=== PATIENT | male | born 1970 | race African-American/Black ===

== ENCOUNTER 2018-01-19 16:34 | Emergency (ER) | payer BC, OTHER ==
[2018-01-19] MEDS ORDERED: POLYETHYLENE GLYCOL 3350 POWDER 17 GM/1 PACKET PO ONE (17:32)
[2018-01-19] MEDS ORDERED: FAMOTIDINE 20 MG TABLET PO ONE (17:32)
--- NOTE | 2018-01-19 17:33 | ER Document Report ---
ED Medical Screen (RME) - General Chief Complaint: Abdominal Pain Stated Complaint: ABDOMINAL PAIN Time Seen by Provider: 01/19/18 17:22 Notes: RAPID MEDICAL EVALUATION DISCLOSURE I have seen this patient as part of a Rapid Medical Evaluation and, if applicable, placed any initially appropriate orders. The patient will be seen and fully evaluated, including a full history and physical exam, by a provider ( in Main ED or Fast Track) when a room becomes available. 47-year-old male here with complaints of epigastric abdominal pain ongoing for the past few days. He has noticed the pain worsened after he drank Sprite earlier today. He has had some nausea but no vomiting or diarrhea. He has been constipated lately and last bowel movement was 3 days ago. He does not currently have any abdominal pain. EXAM No abdominal TTP TRAVEL OUTSIDE OF THE [place] IN LAST 30 DAYS: No - Related Data Allergies/Adverse Reactions: No Known Allergies Allergy (Unverified 09/11/14 01:57) Past Medical History - Past Medical History Cardiac Medical History: Reports: Hx Hypertension Physical Exam - Vital signs Vitals: Temp Pulse Resp BP Pulse Ox 98.6 F 71 18 191/102 H 99 01/19/18 17:10 01/19/18 17:10 01/19/18 17:10 01/19/18 17:10 01/19/18 17:10 Course - Vital Signs Vital signs: Temp Pulse Resp BP Pulse Ox 98.6 F 71 18 191/102 H 99 01/19/18 17:10 01/19/18 17:10 01/19/18 17:10 01/19/18 17:10 01/19/18 17:10
[2018-01-19 18:07] LABS: ABSOLUTE BASOPHILS # (AUTO) 0.1 10^3/uL (0.0-0.2); ABSOLUTE EOSINOPHILS # (AUTO) 0.1 10^3/uL (0.0-0.6); ABSOLUTE LYMPHOCYTES (AUTO) 2.5 10^3/uL (0.5-4.7); ABSOLUTE MONOCYTES (AUTO) 0.7 10^3/uL (0.1-1.4); ABSOLUTE NEUT (AUTO) 5.3 10^3/uL (1.7-8.2); BASOPHILS % (AUTO) 0.7 % (0-2); EOSINOPHILS % (AUTO) 0.7 % (0-6); HEMATOCRIT 48.5 % (37.9-51.0); HEMOGLOBIN 16.3 g/dL (13.5-17.0); LYMPHOCYTES % (AUTO) 29.2 % (13-45); MEAN CORPUSCULAR HEMOGLOBIN 29.4 pg (27.0-33.4); MEAN CORPUSCULAR HGB CONC 33.7 g/dL (32.0-36.0); MEAN CORPUSCULAR VOLUME 87 fl (80-97); MONOCYTES % (AUTO) 8.4 % (3-13); PLATELET COUNT 215 10^3/uL (150-450); RED BLOOD COUNT 5.55 10^6/uL (4.35-5.55); RED CELL DISTRIBUTION WIDTH 14.8 % (11.5-14.0); TOTAL CELLS COUNTED % (AUTO) 100 %; WHITE BLOOD COUNT 8.7 10^3/uL (4.0-10.5)
[2018-01-19 18:21] LABS: ALANINE AMINOTRANSFERASE 45 U/L (21-72); ALBUMIN 4.8 g/dL (3.5-5.0); ALKALINE PHOSPHATASE 78 U/L (38-126); ANION GAP 15 (5-19); ASPARTATE AMINO TRANSFERASE 25 U/L (17-59); BILIRUBIN,DIRECT 0.3 mg/dL (0.0-0.4); BILIRUBIN,TOTAL 0.5 mg/dL (0.2-1.3); BLOOD UREA NITROGEN 12 mg/dL (7-20); CALCIUM 10.2 mg/dL (8.4-10.2); CARBON DIOXIDE 30 mmol/L (22-30); CHLORIDE 101 mmol/L (98-107); GLUCOSE 120 mg/dL (75-110); LIPASE 411.2 U/L (23-300); POTASSIUM 4.1 mmol/L (3.6-5.0); SODIUM 145.6 mmol/L (137-145); TOTAL PROTEIN 8.2 g/dL (6.3-8.2)
--- NOTE | 2018-01-19 18:41 | RADIOLOGY REPORT (SQ) ---
EXAM DESCRIPTION: ACUTE ABDOMEN SERIES COMPLETED DATE/TIME: 01/19/2018 6:09 pm REASON FOR STUDY: epig pain; eval stool burden COMPARISON: None. NUMBER OF VIEWS: 4 images total TECHNIQUE: Frontal chest, supine abdomen and upright/decubitus abdomen radiographic images acquired. LIMITATIONS: None. FINDINGS: CHEST: Lungs clear of infiltrates. FREE AIR: None. No abnormal gas collections. BOWEL GAS PATTERN: Nonobstructive bowel pattern. Small to moderate fecal material. No free air. CALCIFICATIONS: No suspicious calcifications the upper abdomen. Several nonspecific pelvic calcifica tions are noted. HARDWARE: None in the abdomen. SOFT TISSUES: No gross mass or suggestion of organomegaly. BONES: No acute fracture. No worrisome bone lesions. OTHER: No other significant finding. IMPRESSION: Nonobstructive bowel pattern. Small to moderate amount of fecal material. TECHNICAL DOCUMENTATION: JOB ID: [id number] [employer]- All Rights Reserved Reading location - IP/workstation name: [email or web address]
--- NOTE | 2018-01-19 20:52 | ER Document Report ---
ED General - General Chief Complaint: Abdominal Pain Stated Complaint: ABDOMINAL PAIN Time Seen by Provider: 01/19/18 17:22 Notes: 47-year-old male here with complaints of epigastric abdominal pain ongoing for the past few days. He has noticed the pain worsened after he drank Sprite earlier today. He has had some nausea but no vomiting or diarrhea. He has been constipated lately and last bowel movement was 3 days ago. He does not currently have any abdominal pain. TRAVEL OUTSIDE OF THE [place] IN LAST 30 DAYS: No - Related Data Allergies/Adverse Reactions: No Known Allergies Allergy (Unverified 09/11/14 01:57) Past Medical History - Social History Smoking Status: Current Some Day Smoker Chew tobacco use (# tins/day): No Frequency of alcohol use: Rare Drug Abuse: Marijuana Family History: None Patient has suicidal ideation: No Patient has homicidal ideation: No - Past Medical History Cardiac Medical History: Reports: Hx Hypercholesterolemia, Hx Hypertension Renal/ Medical History: Denies: Hx Peritoneal Dialysis Past Surgical History: Reports: Hx Tonsillectomy Review of Systems - Review of Systems Notes: See history of present illness for pertinent positive review of systems; otherwise all review of systems have been reviewed and are negative Physical Exam - Vital signs Vitals: Temp Pulse Resp BP Pulse Ox 98.6 F 71 18 191/102 H 99 01/19/18 17:10 01/19/18 17:10 01/19/18 17:10 01/19/18 17:10 01/19/18 17:10 - Notes Notes: PHYSICAL EXAMINATION: GENERAL: Well-appearing and in no acute distress. HEAD: Atraumatic, normocephalic. EYES: Pupils equal round and reactive to light, extraocular movements intact, sclera anicteric, conjunctiva are normal. ENT: nares patent, oropharynx clear without exudates. Moist mucous membranes. NECK: Normal range of motion, supple without lymphadenopathy LUNGS: CTAB and equal. No wheezes rales or rhonchi. HEART: Regular rate and rhythm without murmurs ABDOMEN: Soft, no tenderness. No facial grimacing/wincing upon palpation. No guarding, no rebound. EXTREMITIES: Normal range of motion, no pitting edema. No cyanosis. NEUROLOGICAL: Cranial nerves grossly intact. Normal sensory/motor exams. PSYCH: Normal mood, normal affect. SKIN: Warm, Dry, normal turgor, no rashes or lesions noted Course - Re-evaluation Re-evalutation: 01/19/18 20:46 MEDICAL DECISION MAKING: Concern for pancreatitis versus gastritis versus constipation Results reviewed there is no leukocytosis hemoglobin is normal electrolytes show minimal hypernatremia Lipase is minimally elevated in the 400s Patient is still pain-free and I have offered IV fluids however he declines He would like to go home instead with prescriptions Blood pressure is elevated however PCP just added a second BP medication today which he has started already He does not have headache lightheadedness chest pain shortness of breath or any other symptoms currently Therefore I have no concern at this time for hypertensive crisis in this patient Instructed follow-up PCP next day or few Discussed with him bland diet and staying hydrated Patient understands and agrees to the plan of care - Vital Signs Vital signs: Temp Pulse Resp BP Pulse Ox 98.6 F 71 18 191/102 H 99 01/19/18 17:10 01/19/18 17:10 01/19/18 17:15 01/19/18 17:10 01/19/18 17:10 - Laboratory Result Diagrams: 01/19/18 17:49 01/19/18 17:49 Laboratory results interpreted by me: 01/19/18 01/19/18 17:49 17:49 RDW 14.8 H Sodium 145.6 H Glucose 120 H Lipase 411.2 H Discharge - Discharge Clinical Impression: Pancreatitis Qualifiers: Chronicity: acute Pancreatitis type: unspecified pancreatitis type Acute pancreatitis complication: unspecified Qualified Code(s): K85.90 - Acute pancreatitis without necrosis or infection, unspecified Condition: Good Disposition: HOME, SELF-CARE Additional Instructions: You were seen in the emergency department at [facility]. You declined IV fluids and to wait for a room to see the main provider/doctor. If you were given any sedating medications (Percocet), be sure not to operate heavy machinery (example - driving) and be sure you are not too sedated to walk appropriately. Please ensure that you stick with the bland diet that we discussed so the pancreatitis does not worsen. Please stay hydrated with plenty of water. Please followup with your primary physician in the next few days for further management/evaluation. Please return to the emergency department for worsening of symptoms or any symptom that you deem to be concerning or life-threatening. Thank you for allowing us to be part of your care. Prescriptions: Ondansetron [Zofran Odt 4 mg Tablet] 1 tab PO Q4H PRN #15 tab.rapdis PRN Reason: For Nausea/Vomiting Oxycodone HCl/Acetaminophen [Percocet 5-325 mg Tablet] 1 - 2 tab PO Q4H PRN #25 tablet PRN Reason:
[2018-01-19 20:55] VITALS: BP 195/100
== END 2018-01-19 21:01 | disposition home or self-care (01) ==
LOC: ER 16:34
DX: K85.90 Acute pancreatitis without necrosis or infection, unspecified (principal); K59.00 Constipation, unspecified; R11.0 Nausea; F17.200 Nicotine dependence, unspecified, uncomplicated; I10 Essential (primary) hypertension
CPT/HCPCS: 99284; 36415; 83690; 85025; 80053; 74022; J3490

== ENCOUNTER 2018-05-22 14:58 | Emergency (ER) | payer BC ==
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
[2018-05-22 15:58] LABS: ABSOLUTE BASOPHILS # (AUTO) 0.1 10^3/uL (0.0-0.2); ABSOLUTE EOSINOPHILS # (AUTO) 0.1 10^3/uL (0.0-0.6); ABSOLUTE LYMPHOCYTES (AUTO) 2.8 10^3/uL (0.5-4.7); ABSOLUTE MONOCYTES (AUTO) 0.6 10^3/uL (0.1-1.4); ABSOLUTE NEUT (AUTO) 3.3 10^3/uL (1.7-8.2); BASOPHILS % (AUTO) 1.1 % (0-2); EOSINOPHILS % (AUTO) 1.7 % (0-6); HEMATOCRIT 41.7 % (37.9-51.0); HEMOGLOBIN 14.3 g/dL (13.5-17.0); LYMPHOCYTES % (AUTO) 40.9 % (13-45); MEAN CORPUSCULAR HEMOGLOBIN 29.5 pg (27.0-33.4); MEAN CORPUSCULAR HGB CONC 34.2 g/dL (32.0-36.0); MEAN CORPUSCULAR VOLUME 86 fl (80-97); MONOCYTES % (AUTO) 8.5 % (3-13); PLATELET COUNT 230 10^3/uL (150-450); RED BLOOD COUNT 4.83 10^6/uL (4.35-5.55); SEGMENTED NEUTROPHILS % (AUTO) 47.8 % (42-78); TOTAL CELLS COUNTED % (AUTO) 100 %; WHITE BLOOD COUNT 6.9 10^3/uL (4.0-10.5)
[2018-05-22 15:59] LABS: ARTERIAL BLOOD H2CO3 1.45 mmol/L (1.05-1.35); ARTERIAL BLOOD HCO3 29.7 mmol/L (20-24); ARTERIAL BLOOD O2 SATURATION 95.1 % (94-98); ARTERIAL BLOOD PCO2 48.2 mmHg (35-45); ARTERIAL BLOOD PH 7.41 (7.35-7.45); ARTERIAL BLOOD PO2 75.3 mmHg (80-100); ARTERIAL BLOOD TOTAL CO2 31.2 mmol/L (23-27)
[2018-05-22 16:02] LABS: INTERNATIONAL RATION (INR) 0.88; PARTIAL THROMBOPLASTIN TIME 28.6 SEC (23.5-35.8); PROTHROMBIN TIME 12.4 SEC (11.4-15.4)
[2018-05-22 16:03] LABS: ARTERIAL BLOOD FIO2 15L
[2018-05-22 16:09] LABS: ALANINE AMINOTRANSFERASE 43 U/L (21-72); ALBUMIN 4.3 g/dL (3.5-5.0); ALKALINE PHOSPHATASE 67 U/L (38-126); ANION GAP 8 (5-19); ASPARTATE AMINO TRANSFERASE 26 U/L (17-59); BILIRUBIN,DIRECT 0.3 mg/dL (0.0-0.4); BILIRUBIN,TOTAL 0.4 mg/dL (0.2-1.3); BLOOD UREA NITROGEN 12 mg/dL (7-20); CALCIUM 9.6 mg/dL (8.4-10.2); CARBON DIOXIDE 30 mmol/L (22-30); CHLORIDE 103 mmol/L (98-107); GLUCOSE 123 mg/dL (75-110); SODIUM 140.9 mmol/L (137-145); TOTAL PROTEIN 7.3 g/dL (6.3-8.2)
[2018-05-22] MEDS ORDERED: CLONIDINE HCL 0.2 MG TABLET PO ONE (20:12)
[2018-05-22 20:29] VITALS: BP 166/102
== END 2018-05-22 20:45 | disposition left against medical advice (07) ==
LOC: ER 14:58
DX: T59.7X1A Toxic effect of carbon dioxide, accidental (unintentional), initial encounter (principal); R42 Dizziness and giddiness; I10 Essential (primary) hypertension; R51 Headache; Z53.20 Procedure and treatment not carried out because of patient's decision for unspecified reasons; Z65.5 Exposure to disaster, war and other hostilities
CPT/HCPCS: 36415; 80053; 82375; 82803; 85025; 85610; 85730; 99284

== ENCOUNTER 2018-05-23 10:02 | Inpatient (IN) | payer BC ==
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
--- NOTE | 2018-05-23 10:39 | RADIOLOGY REPORT (SQ) ---
EXAM DESCRIPTION: CT HEAD WITHOUT COMPLETED DATE/TIME: 05/23/2018 10:29 am REASON FOR STUDY: STROKE SYMPTOMS COMPARISON: 2006 TECHNIQUE: Axial images acquired through the brain without intravenous contrast. Images reviewed wi th bone, brain and subdural windows. Additional sagittal and coronal reconstructions were generated. Images stored on PACS. All CT scanners at this facility use dose modulation, iterative reconstruction, and/or weight based d osing when appropriate to reduce radiation dose to as low as reasonably achievable (ALARA). [facility]: Dose Right [facility]: CareDose [facility]: Dose Right [facility]: Teradose 4D [facility]: Dtime RADIATION DOSE: CT Rad equipment meets quality standard of care and radiation dose reduction techniq ues were employed. CTDIvol: 53.2 mGy. DLP: 991 mGy-cm. mGy. LIMITATIONS: None. FINDINGS: VENTRICLES: Normal size and contour. CEREBRUM: No masses. No hemorrhage. No midline shift. No evidence for acute infarction. Normal gra y/white matter differentiation. No areas of low density in the white matter. CEREBELLUM: No masses. No hemorrhage. No alteration of density. No evidence for acute infarction. EXTRAAXIAL SPACES: No fluid collections. No masses. ORBITS AND GLOBE: No intra- or extraconal masses. Normal contour of globe without masses. CALVARIUM: No fracture. PARANASAL SINUSES: No fluid or mucosal thickening. SOFT TISSUES: No mass or hematoma. OTHER: No other significant finding. IMPRESSION: NORMAL BRAIN CT WITHOUT CONTRAST. EVIDENCE OF ACUTE STROKE: NO. COMMENT: Quality ID # [id number]: Final reports with documentation of one or more dose reduction techniques (e.g., Automated exposure control, adjustment of the mA and/or kV according to patient size, use of iterative reconstruction technique) TECHNICAL DOCUMENTATION: JOB ID: [id number] [employer]- All Rights Reserved Reading location - IP/workstation name: [email or web address]
--- NOTE | 2018-05-23 10:41 | RADIOLOGY REPORT (SQ) ---
EXAM DESCRIPTION: CHEST SINGLE VIEW COMPLETED DATE/TIME: 05/23/2018 10:31 am REASON FOR STUDY: POSSIBLE STROKE COMPARISON: None. EXAM PARAMETERS: NUMBER OF VIEWS: One view. TECHNIQUE: Single frontal radiographic view of the chest acquired. RADIATION DOSE: NA LIMITATIONS: None. FINDINGS: LUNGS AND PLEURA: No opacities, masses or pneumothorax. No pleural effusion. MEDIASTINUM AND HILAR STRUCTURES: No masses. Contour normal. HEART AND VASCULAR STRUCTURES: Heart normal in size. Normal vasculature. BONES: No acute findings. HARDWARE: None in the chest. OTHER: No other significant finding. IMPRESSION: NO ACUTE RADIOGRAPHIC FINDING IN THE CHEST. TECHNICAL DOCUMENTATION: JOB ID: [id number] 2010 [employer]- All Rights Reserved Reading location - IP/workstation name: [email or web address]
[2018-05-23 11:14] LABS: ABSOLUTE BASOPHILS # (AUTO) 0.1 10^3/uL (0.0-0.2); ABSOLUTE EOSINOPHILS # (AUTO) 0.1 10^3/uL (0.0-0.6); ABSOLUTE LYMPHOCYTES (AUTO) 2.9 10^3/uL (0.5-4.7); ABSOLUTE MONOCYTES (AUTO) 0.7 10^3/uL (0.1-1.4); ABSOLUTE NEUT (AUTO) 4.8 10^3/uL (1.7-8.2); HEMATOCRIT 45.8 % (37.9-51.0); HEMOGLOBIN 15.8 g/dL (13.5-17.0); LYMPHOCYTES % (AUTO) 33.9 % (13-45); MEAN CORPUSCULAR HEMOGLOBIN 29.7 pg (27.0-33.4); MEAN CORPUSCULAR HGB CONC 34.6 g/dL (32.0-36.0); MEAN CORPUSCULAR VOLUME 86 fl (80-97); MONOCYTES % (AUTO) 7.9 % (3-13); PLATELET COUNT 250 10^3/uL (150-450); RED BLOOD COUNT 5.33 10^6/uL (4.35-5.55); RED CELL DISTRIBUTION WIDTH 14.5 % (11.5-14.0); SEGMENTED NEUTROPHILS % (AUTO) 56.2 % (42-78); TOTAL CELLS COUNTED % (AUTO) 100 %; WHITE BLOOD COUNT 8.5 10^3/uL (4.0-10.5)
[2018-05-23] MEDS ORDERED: ASPIRIN 81 MG TABLET, CHEWABLE PO ONE (11:24)
[2018-05-23 11:25] LABS: ALANINE AMINOTRANSFERASE 37 U/L (21-72); ALBUMIN 4.5 g/dL (3.5-5.0); ALKALINE PHOSPHATASE 76 U/L (38-126); ANION GAP 5 (5-19); ASPARTATE AMINO TRANSFERASE 32 U/L (17-59); BILIRUBIN,DIRECT 0.6 mg/dL (0.0-0.4); BILIRUBIN,TOTAL 0.8 mg/dL (0.2-1.3); BLOOD UREA NITROGEN 12 mg/dL (7-20); CALCIUM 9.9 mg/dL (8.4-10.2); CARBON DIOXIDE 29 mmol/L (22-30); CHLORIDE 106 mmol/L (98-107); CREATINE KINASE 184 U/L (55-170); GLUCOSE 132 mg/dL (75-110); POTASSIUM 4.1 mmol/L (3.6-5.0); SODIUM 140.4 mmol/L (137-145); TOTAL PROTEIN 8.3 g/dL (6.3-8.2)
[2018-05-23 11:36] LABS: CREATINE KINASE MB 0.68 ng/mL (<4.55)
[2018-05-23 11:37] LABS: TROPONIN I < 0.012 ng/mL
[2018-05-23 11:53] LABS: CHOLESTEROL 196.91 mg/dL (0-200); TRIGLYCERIDES 157 mg/dL (<150)
[2018-05-23 12:04] LABS: DIRECT LDL 124 mg/dL (<100)
[2018-05-23 12:06] LABS: VLDL CHOLESTEROL 31.4 mg/dL (10-31)
--- NOTE | 2018-05-23 12:32 | RADIOLOGY REPORT (SQ) ---
EXAM DESCRIPTION: CTA HEAD COMPLETED DATE/TIME: 05/23/2018 12:19 pm REASON FOR STUDY: left sided weakness COMPARISON: None. TECHNIQUE: Post IV contrast scanning, thin section axial imaging through the brain to evaluate the a rterial structures. Source and MIP images are saved and reviewed on PACS. Advanced 3D imaging as volume-rendering, MIPs, SSD performed? yes All CT scanners at this facility use dose modulation, iterative reconstruction, and/or weight based d osing when appropriate to reduce radiation dose to as low as reasonably achievable (ALARA). [facility]: Dose Right [facility]: CareDose [facility]: Dose Right [facility]: Teradose 4D [facility]: [employer] CONTRAST TYPE AND DOSE: contrast/concentration: Isovue 350.00 mg/ml; Total Contrast Delivered: 70.0 ml; Total Saline Delivered: 75.0 ml RENAL FUNCTION: None required. The patient is less than 50 years old. LIMITATIONS: None. FINDINGS: [place]: The anterior, middle, posterior cerebral arteries are all patent. No ev idence of aneurysm or focal stenosis. POSTERIOR CIRCULATION: The distal vertebral arteries are patent as is the basilar artery. No aneurysm . BRAIN: No gross enhancing lesions as visualized. The superior cerebral hemispheres are not included in the field of view. BONES: Intact as visualized. SINUSES: No fluid or mucosal thickening. OTHER: Carotid bifurcations are included in the field of view. No flow significant stenosis of the r ight or left carotid bifurcations or proximal right or left internal carotid artery. Codominant slaughter nt cervical vertebral arteries in the field of view. IMPRESSION: NO CTA EVIDENCE OF STENOSIS OR ANEURYSM OF THE [place]. COMMENT: Pertinent findings on the imaging study reported as a CRITICAL RESULT to TONYA skaggs t12:20 on 05/23/2018. Category of Critical Result: NEGATIVE CT ANGIO [place] follow-up to code stroke exam TECHNICAL DOCUMENTATION: JOB ID: [id number] Quality ID # [id number]: Final reports with documentation of one or more dose reduction techniques (e.g., Au tomated exposure control, adjustment of the mA and/or kV according to patient size, use of iterative reconstruction technique) 2010 [employer]- All Rights Reserved Reading location - IP/workstation name: [facility], [facility]
--- NOTE | 2018-05-23 13:12 | PDOC H&P ---
History of Present Illness Admission Date/PCP: JENNI MAX DO History of Present Illness: MEGHA AGARWAL is a 47 year old black black male patient who is an insurance coder by profession and does not have significant medical illness except cigar smoking and hypertension presents with chief complaint of left-sided weakness. Of note patient presented yesterday with chief complaint of headache and dizziness attributed to possible carbon monoxide poisoning for which treated with oxygen and sent home. This morning patient awakened with left-sided facial weakness weakness of the upper and lower extremities on the left side associated with numbness and tingling sensation. CTA and CT of the head are negative for acute intracranial process. His blood works are unremarkable. Patient denies any chills, fever palpitation or diaphoresis. He does not have any nausea vomiting abdominal pain or any change in his bowel habits. No blurring of vision or any seizure activity. Past Medical History Cardiac Medical History: Reports: Hyperlipidema, Hypertension Endocrine Medical History: Reports: Diabetes Mellitus Type 2 - pre diabetic Past Surgical History Past Surgical History: Reports: Tonsillectomy Social History Smoking Status: Current Every Day Smoker Frequency of Alcohol Use: Social Hx Recreational Drug Use: No Drugs: None - Advance Directive Resuscitation Status: Full Code Family History Family History: CAD, CVA, DM, Hyperlipidemia, Hypertension Parental Family History Reviewed: Yes Children Family History Reviewed: Yes Sibling(s) Family History Reviewed.: Yes Medication/Allergy Home Medications: Docusate Sodium [Colace 100 mg Capsule] 100 mg PO DAILY #30 capsule 09/11/14 Ibuprofen [Motrin 600 mg Tablet] 600 mg PO Q8HP PRN #60 tablet 09/11/14 Oxycodone HCl [Oxycontin Ir 5 Mg Tablet] 1 - 2 mg PO Q4H PRN #30 tablet Ondansetron [Zofran Odt 4 mg Tablet] 1 tab PO Q4H PRN #15 tab.rapdis 01/19/18 Oxycodone HCl/Acetaminophen [Percocet 5-325 mg Tablet] 1 - 2 tab PO Q4H PRN #25 tablet 01/19/18 Allergies/Adverse Reactions: No Known Allergies Allergy (Unverified 09/11/14 01:57) Review of Systems Constitutional: PRESENT: as per HPI Nose, Mouth, and Throat: PRESENT: as per HPI Cardiovascular: PRESENT: as per HPI Respiratory: PRESENT: as per HPI Gastrointestinal: PRESENT: as per HPI Musculoskeletal: PRESENT: as per HPI Neurological: PRESENT: as per HPI Psychiatric: PRESENT: as per HPI Physical Exam Vital Signs: Temp Pulse Resp BP Pulse Ox 67 17 167/99 H 98 05/23/18 10:36 05/23/18 10:36 05/23/18 10:36 05/23/18 10:36 General appearance: PRESENT: no acute distress Head exam: PRESENT: atraumatic, normocephalic Eye exam: PRESENT: conjunctiva pink Mouth exam: PRESENT: moist Neck exam: ABSENT: carotid bruit, JVD, lymphadenopathy, thyromegaly Respiratory exam: PRESENT: clear to auscultation bree. ABSENT: rales, rhonchi, wheezes Cardiovascular exam: PRESENT: RRR. ABSENT: diastolic murmur, rubs, systolic murmur GI/Abdominal exam: PRESENT: normal bowel sounds, soft. ABSENT: distended, guarding, mass, organolmegaly, rebound, tenderness Extremities exam: PRESENT: full ROM. ABSENT: calf tenderness, clubbing, pedal edema Neurological exam: PRESENT: alert, awake, oriented to time, oriented to situation - Patient has questionable left facial droop Psychiatric exam: PRESENT: normal mood Results Laboratory Results: 05/23/18 10:39 05/23/18 10:39 05/23/18 05/23/18 05/23/18 10:39 10:39 10:39 WBC 8.5 RBC 5.33 Hgb 15.8 Hct 45.8 MCV 86 MCH 29.7 MCHC 34.6 RDW 14.5 H Plt Count 250 Seg Neutrophils % 56.2 Lymphocytes % 33.9 Monocytes % 7.9 Eosinophils % 1.0 Basophils % 1.0 Absolute Neutrophils 4.8 Absolute Lymphocytes 2.9 Absolute Monocytes 0.7 Absolute Eosinophils 0.1 Absolute Basophils 0.1 Sodium 140.4 Potassium 4.1 Chloride 106 Carbon Dioxide 29 Anion Gap 5 BUN 12 Creatinine 0.84 Est GFR ( Amer) > 60 Est GFR (Non-Af Amer) > 60 Glucose 132 H Calcium 9.9 Total Bilirubin 0.8 AST 32 ALT 37 Alkaline Phosphatase 76 Total Protein 8.3 H Albumin 4.5 Triglycerides 157 H Cholesterol 196.91 LDL Cholesterol Direct 124 H VLDL Cholesterol 31.4 H HDL Cholesterol 32 L 05/23/18 05/23/18 10:39 10:39 Creatine Kinase 184 H CK-MB (CK-2) 0.68 Troponin I < 0.012 Impressions: Chest X-Ray 05/23/18 00:00 IMPRESSION: NO ACUTE RADIOGRAPHIC FINDING IN THE CHEST. Head CT 05/23/18 00:00 IMPRESSION: NORMAL BRAIN CT WITHOUT CONTRAST. EVIDENCE OF ACUTE STROKE: NO. Head CTA 05/23/18 11:08 IMPRESSION: NO CTA EVIDENCE OF STENOSIS OR ANEURYSM OF THE [place]. Assessment & Plan - Diagnosis (1) Stroke or transient ischemic attack (TIA) diagnosed during current admission Is this a current diagnosis for this admission?: Yes Plan: MRI of the brain. Carotid Doppler. Aspirin and high intensity Lipitor. (2) Hypertension Qualifiers: Hypertension type: essential hypertension Qualified Code(s): I10 - Essential (primary) hypertension Is this a current diagnosis for this admission?: Yes Plan: I will continue his home medication in the coming 24-48 hours. (3) Tobacco dependence Is this a current diagnosis for this admission?: Yes Plan: Patient counseled and encouraged to quit smoking.
[2018-05-23 13:30] LABS: APPEARANCE,URINE CLEAR; COLOR,URINE COLORLESS
[2018-05-23 13:31] LABS: BILIRUBIN,URINE NEGATIVE (NEGATIVE); GLUCOSE, URINE NEGATIVE (NEGATIVE); KETONES,URINE NEGATIVE (NEGATIVE); PROTEIN,URINE NEGATIVE (NEGATIVE); URINE SPECIFIC GRAVITY 1.019
[2018-05-23 13:32] LABS: LEUKOCYTE ESTERASE,URINE NEGATIVE (NEGATIVE); NITRITE,URINE NEGATIVE (NEGATIVE); UROBILINOGEN,URINE NEGATIVE mg/dL (<2.0)
[2018-05-23 13:42] LABS: URINE AMPHETAMINES SCREEN NEGATIVE; URINE BARBITURATES SCREEN NEGATIVE; URINE BENZODIAZEPINES SCREEN NEGATIVE; URINE COCAINE SCREEN NEGATIVE; URINE MARIJUANA (THC) SCREEN UNCONFIRMED POSITIVE; URINE METHADONE SCREEN NEGATIVE; URINE PHENCYCLIDINE SCREEN NEGATIVE
[2018-05-23] MEDS ORDERED: ACETAMINOPHEN 325 MG TABLET ONE (20:43)
[2018-05-23] MEDS ORDERED: ATORVASTATIN CALCIUM 80 MG TABLET ONE (21:00)
[2018-05-23] MEDS: ACETAMINOPHEN 325 MG TABLET PO PRN (21:03)
[2018-05-23] MEDS: ATORVASTATIN CALCIUM 80 MG TABLET PO SCH (21:04)
--- NOTE | 2018-05-23 21:21 | EKG REPORT ---
SEVERITY:- NORMAL ECG - SINUS RHYTHM ST ELEV, PROBABLE NORMAL EARLY REPOL PATTERN : Confirmed by: Josemanuel Lockett 23-May-2018 21:20:39
[2018-05-24 06:35] LABS: CHOLESTEROL 200.22 mg/dL (0-200); TRIGLYCERIDES 132 mg/dL (<150)
[2018-05-24 06:46] LABS: DIRECT LDL 129 mg/dL (<100)
[2018-05-24] MEDS: ACETAMINOPHEN 325 MG TABLET PO PRN ×2 (08:13→20:23)
[2018-05-24] MEDS ORDERED: OXYCODONE HCL SR 10 MG TABLET PO ONE (09:30)
--- NOTE | 2018-05-24 09:40 | PDOC PROGRESS REPORT ---
Subjective Progress Note for:: 05/24/18 Subjective:: Mr. Travis is 47 years old black male patient who presented with chief complaint of left facial left upper and lower extremity weakness numbness and tingling sensation. His CTA and CT scan of the head are negative. MRI of the brain could not be done because a radiology unit has been flooded. This morning I seen patient resting in bed he complains of moderate headache involving the right temporal area. His pupils are equal and reactive bilaterally. Physical and occupational therapy is not available. Reason For Visit: TIA/STROKE Physical Exam Vital Signs: Temp Pulse Resp BP Pulse Ox 98.1 F 59 L 16 155/89 H 100 05/24/18 04:15 05/24/18 06:36 05/24/18 04:15 05/24/18 04:15 05/24/18 04:15 Intake & Output 05/23/18 05/24/18 05/25/18 06:59 06:59 06:59 Weight 111.4 kg General appearance: PRESENT: no acute distress Head exam: PRESENT: atraumatic, normocephalic Eye exam: PRESENT: conjunctiva pink, PERRLA Neck exam: ABSENT: carotid bruit, JVD, lymphadenopathy, thyromegaly Respiratory exam: PRESENT: clear to auscultation bree. ABSENT: rales, rhonchi, wheezes Cardiovascular exam: PRESENT: RRR. ABSENT: diastolic murmur, rubs, systolic murmur GI/Abdominal exam: PRESENT: normal bowel sounds, soft. ABSENT: distended, guarding, mass, organolmegaly, rebound, tenderness Neurological exam: PRESENT: alert, awake, oriented to time, oriented to situation Psychiatric exam: PRESENT: normal mood - Left upper and lower extremity weakness Results Laboratory Results: 05/24/18 05:26 Triglycerides 132 Cholesterol 200.22 H LDL Cholesterol Direct 129 H VLDL Cholesterol 26.0 HDL Cholesterol 33 L Impressions: Chest X-Ray 05/23/18 00:00 IMPRESSION: NO ACUTE RADIOGRAPHIC FINDING IN THE CHEST. Head CT 05/23/18 00:00 IMPRESSION: NORMAL BRAIN CT WITHOUT CONTRAST. EVIDENCE OF ACUTE STROKE: NO. Head CTA 05/23/18 11:08 IMPRESSION: NO CTA EVIDENCE OF STENOSIS OR ANEURYSM OF THE [place]. Assessment & Plan - Diagnosis (1) Stroke or transient ischemic attack (TIA) diagnosed during current admission Is this a current diagnosis for this admission?: Yes Plan: MRI of the brain. Carotid Doppler. Aspirin and high intensity Lipitor. (2) Hypertension Qualifiers: Hypertension type: essential hypertension Qualified Code(s): I10 - Essential (primary) hypertension Is this a current diagnosis for this admission?: Yes Plan: I will continue his home medication in the coming 24-48 hours. (3) Tobacco dependence Is this a current diagnosis for this admission?: Yes Plan: Patient counseled and encouraged to quit smoking. (4) Hyperlipidemia Qualifiers: Hyperlipidemia type: unspecified Qualified Code(s): E78.5 - Hyperlipidemia , unspecified Is this a current diagnosis for this admission?: Yes Plan: Continue statin and lifestyle modification.
[2018-05-24] MEDS: ENOXAPARIN SODIUM INJ 40 MG/0.4 ML DISP.SYRIN SUBCUT SCH (09:48)
[2018-05-24] MEDS: ASPIRIN 81 MG TABLET, ENT COATED PO SCH (09:58)
[2018-05-24] MEDS ORDERED: ASPIRIN 325 MG TABLET, ENT COATED PO SCH (10:00)
[2018-05-24] MEDS: ATORVASTATIN CALCIUM 80 MG TABLET PO SCH (22:08)
[2018-05-24] MEDS: OXYCODONE HCL SR 10 MG TABLET PO SCH (22:08)
[2018-05-25] MEDS: OXYCODONE HCL SR 10 MG TABLET PO SCH ×2 (09:56→21:16)
[2018-05-25] MEDS: ASPIRIN 81 MG TABLET, ENT COATED PO SCH (09:56)
[2018-05-25] MEDS: ENOXAPARIN SODIUM INJ 40 MG/0.4 ML DISP.SYRIN SUBCUT SCH (09:56)
--- NOTE | 2018-05-25 11:25 | RADIOLOGY REPORT (SQ) ---
EXAM DESCRIPTION: MRI HEAD WITHOUT COMPLETED DATE/TIME: 05/25/2018 11:11 am REASON FOR STUDY: stroke COMPARISON: CT scan 05/23/2018 TECHNIQUE: Multiplanar imaging includes non-contrasted T1, T2, FLAIR, and diffusion with ADC map seq uences. Images stored on PACS. LIMITATIONS: None. FINDINGS: ANATOMY: No anomalies. Normal vascular flow voids. Pituitary fossa normal. CSF SPACES: Normal in size and contour. No hemorrhage. CEREBRUM: Sulci and gyri normal in size and contour. Focus of high-signal FLAIR imaging right financial services internship al capsule. . No evidence of hemorrhage, mass, or extraaxial fluid collection. POSTERIOR FOSSA: No signal alteration. No hemorrhage. No edema, masses or mass effect. Internal nicole tory canals, cerebello-pontine angles, mastoids normal. DIFFUSION IMAGING: Positive diffusion in the right internal capsule. ORBITS: No masses. Globes normal. PARANASAL SINUSES: No fluid levels. Mucosa normal. OTHER: No other significant finding. IMPRESSION: Acute infarction right internal capsule without mass effect or hemorrhage. EVIDENCE OF ACUTE STROKE: YES. RIGHT MCA TECHNICAL DOCUMENTATION: JOB ID: [id number]- All Rights Reserved Reading location - IP/workstation name: [email or web address]
--- NOTE | 2018-05-25 13:38 | RADIOLOGY REPORT (SQ) ---
EXAM DESCRIPTION: CAROTID DOPPLER COMPLETED DATE/TIME: 05/25/2018 1:24 pm REASON FOR STUDY: left sided weakness COMPARISON: None. TECHNIQUE: Grayscale ultrasound, Doppler velocity and spectra, and color Doppler images acquired of the extra-cranial carotid and vertebral arteries. Images stored on PACS. LIMITATIONS: None. FINDINGS: RIGHT CAROTID CCA Velocities: 59 centimeters/second ICA Velocities Peak systolic 65 cm/s. End diastolic 27 cm/s. Proximal ICA/CCA peak systolic ratio 1.1. Spectra normal. No significant plaque. LEFT CAROTID CCA Velocities: 54 centimeters/second ICA Velocities Peak systolic 75 cm/s. End diastolic 28 cm/s. Proximal ICA/CCA peak systolic ratio 1.4. Spectra normal. No significant plaque. VERTEBRAL ARTERIES: Antegrade flow. Normal waveforms. SUBCLAVIAN ARTERIES: No finding. OTHER: No other significant finding. IMPRESSION: NO HEMODYNAMICALLY SIGNIFICANT STENOSIS. COMMENT: Quality ID #[id number]: Velocity criteria are extrapolated from the diameter data as defined by t he Society of Radiologists in Ultrasound Consensus Conference. Radiology 2003: 229; 340-346. TECHNICAL DOCUMENTATION: JOB ID: [id number] [employer]- All Rights Reserved Reading location - IP/workstation name: [email or web address]
[2018-05-25] MEDS: ACETAMINOPHEN 325 MG TABLET PO PRN (14:31)
--- NOTE | 2018-05-25 14:48 | PDOC PROGRESS REPORT ---
Subjective Progress Note for:: 05/25/18 Subjective:: Mr. Travis is 47 years old black male patient who presented with chief complaint of left facial left upper and lower extremity weakness numbness and tingling sensation. His CTA and CT scan of the head are negative. MRI of the brain reported as acute ischemic stroke involving the MCA territory. This morning I seen patient resting in bed he complains of moderate headache involving the right temporal area. His pupils are equal and reactive bilaterally. Possibly tomorrow physical and occupational therapy will evaluate him. Reason For Visit: TIA/STROKE Physical Exam Vital Signs: Temp Pulse Resp BP Pulse Ox 98.1 F 58 L 18 157/92 H 98 05/25/18 11:42 05/25/18 12:00 05/25/18 12:00 05/25/18 12:00 05/25/18 12:00 Intake & Output 05/24/18 05/25/18 05/26/18 06:59 06:59 06:59 Intake Total 470 600 Output Total 400 0 Balance 70 600 Weight 111.4 kg 113.2 kg General appearance: PRESENT: no acute distress, well-developed, well-nourished Head exam: PRESENT: atraumatic, normocephalic Eye exam: PRESENT: conjunctiva pink, EOMI, PERRLA. ABSENT: scleral icterus Ear exam: PRESENT: normal external ear exam Mouth exam: PRESENT: moist, tongue midline Neck exam: ABSENT: carotid bruit, JVD, lymphadenopathy, thyromegaly Respiratory exam: PRESENT: clear to auscultation bree. ABSENT: rales, rhonchi, wheezes Cardiovascular exam: PRESENT: RRR. ABSENT: diastolic murmur, rubs, systolic murmur Pulses: PRESENT: normal dorsalis pedis pul Vascular exam: PRESENT: normal capillary refill GI/Abdominal exam: PRESENT: normal bowel sounds, soft. ABSENT: distended, guarding, mass, organolmegaly, rebound, tenderness Rectal exam: PRESENT: deferred Extremities exam: PRESENT: full ROM. ABSENT: calf tenderness, clubbing, pedal edema Neurological exam: PRESENT: alert, awake, oriented to person, oriented to place , oriented to time, oriented to situation, CN II-XII grossly intact. ABSENT: motor sensory deficit Psychiatric exam: PRESENT: appropriate affect, normal mood. ABSENT: homicidal ideation, suicidal ideation Skin exam: PRESENT: dry, intact, warm. ABSENT: cyanosis, rash Results Impressions: Chest X-Ray 05/23/18 00:00 IMPRESSION: NO ACUTE RADIOGRAPHIC FINDING IN THE CHEST. Head CT 05/23/18 00:00 IMPRESSION: NORMAL BRAIN CT WITHOUT CONTRAST. EVIDENCE OF ACUTE STROKE: NO. Head CTA 05/23/18 11:08 IMPRESSION: NO CTA EVIDENCE OF STENOSIS OR ANEURYSM OF THE [place]. Carotid Doppler Study 05/25/18 00:00 IMPRESSION: NO HEMODYNAMICALLY SIGNIFICANT STENOSIS. Head MRI 05/25/18 00:00 IMPRESSION: Acute infarction right internal capsule without mass effect or hemorrhage. EVIDENCE OF ACUTE STROKE: YES. RIGHT MCA Assessment & Plan - Diagnosis (1) Acute ischemic stroke MCA territory Is this a current diagnosis for this admission?: Yes Plan: Patient has been on aspirin, Lipitor, Plavix. Patient advised to do lifestyle modification. (2) Hypertension Qualifiers: Hypertension type: essential hypertension Qualified Code(s): I10 - Essential (primary) hypertension Is this a current diagnosis for this admission?: Yes Plan: I will continue his home medication in the coming 24-48 hours. (3) Tobacco dependence Is this a current diagnosis for this admission?: Yes Plan: Patient counseled and encouraged to quit smoking. (4) Hyperlipidemia Qualifiers: Hyperlipidemia type: unspecified Qualified Code(s): E78.5 - Hyperlipidemia , unspecified Is this a current diagnosis for this admission?: Yes Plan: Continue statin and lifestyle modification.
[2018-05-25] MEDS: CLOPIDOGREL BISULFATE 75 MG TABLET PO SCH (15:18)
[2018-05-25] MEDS: ATORVASTATIN CALCIUM 80 MG TABLET PO SCH (21:16)
[2018-05-26] MEDS: ACETAMINOPHEN 325 MG TABLET PO PRN ×2 (08:47→21:20)
[2018-05-26] MEDS ORDERED: METOPROLOL SUCCINATE 50 MG TAB.SR.24H PO SCH (10:00)
[2018-05-26] MEDS: ASPIRIN 81 MG TABLET, ENT COATED PO SCH (10:50)
[2018-05-26] MEDS: CLOPIDOGREL BISULFATE 75 MG TABLET PO SCH (10:52)
[2018-05-26] MEDS: ENOXAPARIN SODIUM INJ 40 MG/0.4 ML DISP.SYRIN SUBCUT SCH (10:52)
[2018-05-26] MEDS: OXYCODONE HCL SR 10 MG TABLET PO SCH ×2 (11:05→21:18)
[2018-05-26] MEDS ORDERED: AMLODIPINE BESYLATE 5 MG TABLET PO SCH (11:15)
--- NOTE | 2018-05-26 11:17 | PDOC PROGRESS REPORT ---
Subjective Progress Note for:: 05/26/18 Subjective:: Patient was admitted in the hospital for the acute strokes with the left-sided facial numbness and weakness patient is currently doing much better denied any headache Patient's denied any chest pain Patient is on a bedside Reason For Visit: TIA/STROKE Physical Exam Vital Signs: Temp Pulse Resp BP Pulse Ox 98.1 F 61 18 171/98 H 100 05/26/18 09:09 05/26/18 09:09 05/26/18 09:09 05/26/18 09:09 05/26/18 09:09 Intake & Output 05/25/18 05/26/18 05/27/18 06:59 06:59 06:59 Intake Total 470 1480 Output Total 400 0 Balance 70 1480 Weight 113.2 kg 113.4 kg General appearance: PRESENT: no acute distress, well-developed, well-nourished Head exam: PRESENT: atraumatic, normocephalic Eye exam: PRESENT: conjunctiva pink, EOMI, PERRLA. ABSENT: scleral icterus Ear exam: PRESENT: normal external ear exam Mouth exam: PRESENT: moist, tongue midline Neck exam: PRESENT: full ROM. ABSENT: carotid bruit, JVD, lymphadenopathy, thyromegaly Respiratory exam: PRESENT: clear to auscultation bree Cardiovascular exam: PRESENT: RRR. ABSENT: diastolic murmur, rubs, systolic murmur Pulses: PRESENT: normal dorsalis pedis pul, +2 pedal pulses bilateral Vascular exam: PRESENT: normal capillary refill GI/Abdominal exam: PRESENT: normal bowel sounds, soft. ABSENT: distended, guarding, mass, organolmegaly, rebound, tenderness Rectal exam: PRESENT: deferred Musculoskeletal exam: PRESENT: ambulatory Neurological exam: PRESENT: alert, awake, oriented to person, oriented to place , oriented to time, oriented to situation, CN II-XII grossly intact. ABSENT: motor sensory deficit Psychiatric exam: PRESENT: appropriate affect, normal mood. ABSENT: homicidal ideation, suicidal ideation Skin exam: PRESENT: dry, intact, warm. ABSENT: cyanosis, rash Results Impressions: Chest X-Ray 05/23/18 00:00 IMPRESSION: NO ACUTE RADIOGRAPHIC FINDING IN THE CHEST. Head CT 05/23/18 00:00 IMPRESSION: NORMAL BRAIN CT WITHOUT CONTRAST. EVIDENCE OF ACUTE STROKE: NO. Head CTA 05/23/18 11:08 IMPRESSION: NO CTA EVIDENCE OF STENOSIS OR ANEURYSM OF THE [place]. Carotid Doppler Study 05/25/18 00:00 IMPRESSION: NO HEMODYNAMICALLY SIGNIFICANT STENOSIS. Head MRI 05/25/18 00:00 IMPRESSION: Acute infarction right internal capsule without mass effect or hemorrhage. EVIDENCE OF ACUTE STROKE: YES. RIGHT MCA Assessment & Plan - Diagnosis (1) Acute ischemic stroke MCA territory Is this a current diagnosis for this admission?: Yes Plan: Continues aspirin and Plavix on the Lipitor (2) Hyperlipidemia Qualifiers: Hyperlipidemia type: unspecified Qualified Code(s): E78.5 - Hyperlipidemia , unspecified Is this a current diagnosis for this admission?: Yes Plan: Continues to current medications with the Lipitor (3) Hypertension Qualifiers: Hypertension type: essential hypertension Qualified Code(s): I10 - Essential (primary) hypertension Is this a current diagnosis for this admission?: Yes Plan: We will start the patient on amlodipine 5 mg enalapril 10 mg twice a day His heart rate is running low we will stop the beta-miguel angel (4) Tobacco dependence Is this a current diagnosis for this admission?: Yes (5) Headache Qualifiers: Headache type: unspecified Headache chronicity pattern: unspecified pattern Intractability: not intractable Qualified Code(s): R51 - Headache Is this a current diagnosis for this admission?: Yes Plan: We will repeat the MRI of the head - Time Time Spent with patient: 15-24 minutes Medications reviewed and adjusted accordingly: Yes Anticipated discharge: Home Within: Other - Inpatient Certification Medical Necessity: Need Close Monitoring Due to Risk of Patient Decompensation Post Hospital Care: D/C Healthcare Economics Consultant Documentation - Plan Summary Plan Summary: Continues to current medication Discuss regarding the patient's current conditions
--- NOTE | 2018-05-26 18:45 | RADIOLOGY REPORT (SQ) ---
EXAM DESCRIPTION: CT HEAD WITHOUT COMPLETED DATE/TIME: 05/26/2018 6:33 pm REASON FOR STUDY: headache/stroke COMPARISON: CT 05/23/2018 MR 05/25/2018 TECHNIQUE: Axial images acquired through the brain without intravenous contrast. Images reviewed wi th bone, brain and subdural windows. Additional sagittal and coronal reconstructions were generated. Images stored on PACS. All CT scanners at this facility use dose modulation, iterative reconstruction, and/or weight based d osing when appropriate to reduce radiation dose to as low as reasonably achievable (ALARA). [facility]: Dose Right [facility]: CareDose [facility]: Dose Right [facility]: Teradose 4D [facility]: [employer] RADIATION DOSE: CT Rad equipment meets quality standard of care and radiation dose reduction techniq ues were employed. CTDIvol: 53.2 mGy. DLP: 1017 mGy-cm. mGy. LIMITATIONS: None. FINDINGS: VENTRICLES: Normal size and contour. CEREBRUM: No masses. No hemorrhage. No midline shift. No evidence for acute infarction. There is a small area of decreased attenuation in the region the right thalamus. This corresponds to the area of abnormal diffusion seen on the MRI from 05/25/2018. CEREBELLUM: No masses. No hemorrhage. No alteration of density. No evidence for acute infarction. EXTRAAXIAL SPACES: No fluid collections. No masses. ORBITS AND GLOBE: No intra- or extraconal masses. Normal contour of globe without masses. CALVARIUM: No fracture. PARANASAL SINUSES: No fluid or mucosal thickening. SOFT TISSUES: No mass or hematoma. OTHER: No other significant finding. IMPRESSION: Subacute infarction in the right thalamus. No new findings. EVIDENCE OF ACUTE STROKE: NO. COMMENT: Quality ID # [id number]: Final reports with documentation of one or more dose reduction techniques (e.g., Automated exposure control, adjustment of the mA and/or kV according to patient size, use of iterative reconstruction technique) TECHNICAL DOCUMENTATION: JOB ID: [id number] [employer]- All Rights Reserved Reading location - IP/workstation name: [email or web address]
--- NOTE | 2018-05-26 19:11 | XCELERA REPORT ---
[address] [address] Transthoracic Echocardiogram Report Name: MEGHA AGARWAL Age: 47 yrs Gender: Male : 1970 Patient Status: Inpatient Patient Location: [address] [place] [address] Study Date: 05/26/2018 04:24 PM Height: 76 in Weight: 250 lb BSA: 2.4 m2 Procedure: A two-dimensional transthoracic echocardiogram with color flow Doppler was performed. Study Quality: Fair. Reason For Study: stroke History: stroke. Ordering Physician: THIERRY GONSALES Performed By: Lucy Bonilla Interpretation Summary There is no obvious cardiac source of embolus noted on this transthoracic echocardiogram. Follow-up with a MICHAEL is suggested if cardiac source is still suspected. The left ventricle is normal in size. There is normal left ventricular wall thickness. LV EF is > than 60% Left ventricular systolic function is normal. Doppler measurements suggest impaired left ventricular relaxation, which is associated with grade I/IV or mild diastolic dysfunction The left ventricular wall motion is normal. There is no thrombus. The right ventricle is grossly normal size. The right ventricle is not well visualized secondary to technical limitations The left atrial size is normal. There is no evidence of mitral valve prolapse. There is no mitral valve stenosis. There is no mitral regurgitation noted. There is no aortic valvular vegetation. There is no aortic valve stenosis There is no LVOT obstruction. There is a trace amount of aortic regurgitation There is no tricuspid stenosis. There is a trace amount of tricuspid regurgitation Right ventricular systolic pressure is normal. RVSP is 14 to 19 mm of Hg , with RA mean of 5 to 10. There is no pericardial effusion. There is no obvious cardiac source of embolus noted on this transthoracic echocardiogram. Follow-up with a MICHAEL is suggested if cardiac source is still suspected MMode/2D Measurements & Calculations RVDd: 2.6 cm LVIDd: 5.7 cm FS: 35.0 % Ao root diam: 3.3 cm IVSd: 1.0 cm LVIDs: 3.7 cm EDV(Teich): 162.6 ml Ao root area: 8.4 cm2 LVPWd: 1.1 cm ESV(Teich): 59.2 ml LA dimension: 2.7 cm EF(Teich): 63.6 % Doppler Measurements & Calculations MV E max luh: MV P1/2t max luh: Ao V2 max: AI max luh: 48.4 cm/sec 87.6 cm/sec 161.3 cm/sec 327.1 cm/sec MV A max luh: MV P1/2t: 68.7 msec Ao max PG: AI max P.8 mmHg 70.1 cm/sec MVA(P1/2t): 3.2 cm2 10.4 mmHg AI dec slope: MV E/A: 0.69 MV dec slope: 138.3 cm/sec2 AI P1/2t: 692.9 msec 373.8 cm/sec2 MV dec time: 0.31 sec LV V1 max PG: TV V2 max: PA V2 max: TR max luh: 6.1 mmHg 90.9 cm/sec 93.7 cm/sec 145.0 cm/sec LV V1 max: TV max P.3 mmHg PA max PG: TR max P.4 mmHg 123.4 cm/sec 3.5 mmHg AV P1/2t-pr_phl: MV P1/2t-pr_phl: 692.9 msec 68.7 msec Left Ventricle The left ventricle is normal in size. There is normal left ventricular wall thickness. LV EF is > than 60%. Left ventricular systolic function is normal. Doppler measurements suggest impaired left ventricular relaxation, which is associated with grade I/IV or mild diastolic dysfunction. The left ventricular wall motion is normal. There is no thrombus. Right Ventricle The right ventricle is grossly normal size. The right ventricle is not well visualized secondary to technical limitations. Atria The right atrium is normal. The left atrial size is normal. Mitral Valve There is no evidence of mitral valve prolapse. There is no vegetation seen on the mitral valve. There is no mitral valve stenosis. There is no mitral regurgitation noted. Aortic Valve There is no aortic valvular vegetation. There is no aortic valve stenosis. There is no LVOT obstruction. There is a trace amount of aortic regurgitation. Tricuspid Valve There is no tricuspid stenosis. There is a trace amount of tricuspid regurgitation. Right ventricular systolic pressure is normal. RVSP is 14 to 19 mm of Hg , with RA mean of 5 to 10. Pulmonic Valve There is no pulmonic valvular stenosis. There is no pulmonic valvular regurgitation. Great Vessels The aortic root is not well visualized but is probably normal size. Effusions There is no pericardial effusion. : THIERRY GONSALES > Rose Caceres
[2018-05-26] MEDS: ATORVASTATIN CALCIUM 80 MG TABLET PO SCH (21:20)
[2018-05-26] MEDS: LISINOPRIL 10 MG TABLET PO SCH (21:20)
[2018-05-27] MEDS: CLOPIDOGREL BISULFATE 75 MG TABLET PO SCH (09:07)
[2018-05-27] MEDS: LISINOPRIL 10 MG TABLET PO SCH ×2 (09:07→21:22)
[2018-05-27] MEDS: AMLODIPINE BESYLATE 5 MG TABLET PO SCH ×2 (09:07→21:22)
[2018-05-27] MEDS: ENOXAPARIN SODIUM INJ 40 MG/0.4 ML DISP.SYRIN SUBCUT SCH (09:08)
[2018-05-27] MEDS: ASPIRIN 81 MG TABLET, ENT COATED PO SCH (09:08)
[2018-05-27] MEDS: OXYCODONE HCL SR 10 MG TABLET PO SCH ×2 (09:37→21:22)
--- NOTE | 2018-05-27 09:59 | PDOC PROGRESS REPORT ---
Subjective Progress Note for:: 05/27/18 Subjective:: Patient is currently doing better Patient's denied any weakness Headache is also improving Repeat CT of the head suggest the patient have a small right thalamus strokes Patient's denied any chest pain denied any shortness of the breath Since walk with the physical therapy Reason For Visit: TIA/STROKE Physical Exam Vital Signs: Temp Pulse Resp BP Pulse Ox 98.2 F 54 L 16 161/93 H 98 05/27/18 03:45 05/27/18 07:00 05/27/18 03:45 05/27/18 03:45 05/27/18 03:45 Intake & Output 05/26/18 05/27/18 05/28/18 06:59 06:59 06:59 Intake Total 1480 474 Output Total 0 Balance 1480 474 Weight 113.4 kg 113.7 kg General appearance: PRESENT: no acute distress, well-developed, well-nourished Head exam: PRESENT: atraumatic, normocephalic Eye exam: PRESENT: conjunctiva pink, EOMI, PERRLA. ABSENT: scleral icterus Ear exam: PRESENT: normal external ear exam Mouth exam: PRESENT: moist, tongue midline Neck exam: PRESENT: full ROM. ABSENT: carotid bruit, JVD, lymphadenopathy, thyromegaly Respiratory exam: PRESENT: clear to auscultation bree Cardiovascular exam: PRESENT: RRR. ABSENT: diastolic murmur, rubs, systolic murmur Pulses: PRESENT: normal dorsalis pedis pul, +2 pedal pulses bilateral Vascular exam: PRESENT: normal capillary refill GI/Abdominal exam: PRESENT: normal bowel sounds, soft. ABSENT: distended, guarding, mass, organolmegaly, rebound, tenderness Rectal exam: PRESENT: deferred Extremities exam: ABSENT: pedal edema Musculoskeletal exam: PRESENT: ambulatory Neurological exam: PRESENT: alert, awake, oriented to person, oriented to place , oriented to time, oriented to situation, CN II-XII grossly intact. ABSENT: motor sensory deficit Psychiatric exam: PRESENT: appropriate affect, normal mood. ABSENT: homicidal ideation, suicidal ideation Skin exam: PRESENT: dry, intact, warm. ABSENT: cyanosis, rash Results Impressions: Chest X-Ray 05/23/18 00:00 IMPRESSION: NO ACUTE RADIOGRAPHIC FINDING IN THE CHEST. Head CTA 05/23/18 11:08 IMPRESSION: NO CTA EVIDENCE OF STENOSIS OR ANEURYSM OF THE [place]. Carotid Doppler Study 05/25/18 00:00 IMPRESSION: NO HEMODYNAMICALLY SIGNIFICANT STENOSIS. Head MRI 05/25/18 00:00 IMPRESSION: Acute infarction right internal capsule without mass effect or hemorrhage. EVIDENCE OF ACUTE STROKE: YES. RIGHT MCA Head CT 05/26/18 00:00 IMPRESSION: Subacute infarction in the right thalamus. No new findings. EVIDENCE OF ACUTE STROKE: NO. Assessment & Plan - Diagnosis (1) Acute ischemic stroke MCA territory Is this a current diagnosis for this admission?: Yes Plan: Continues to current medication (2) Hyperlipidemia Qualifiers: Hyperlipidemia type: unspecified Qualified Code(s): E78.5 - Hyperlipidemia , unspecified Is this a current diagnosis for this admission?: Yes Plan: Continues to current medications with the Lipitor (3) Hypertension Qualifiers: Hypertension type: essential hypertension Qualified Code(s): I10 - Essential (primary) hypertension Is this a current diagnosis for this admission?: Yes Plan: We will start the patient on amlodipine 5 mg enalapril 10 mg twice a day His heart rate is running low we will stop the beta-miguel angel (4) Tobacco dependence Is this a current diagnosis for this admission?: Yes (5) Headache Qualifiers: Headache type: unspecified Headache chronicity pattern: unspecified pattern Intractability: not intractable Qualified Code(s): R51 - Headache Is this a current diagnosis for this admission?: Yes Plan: Status post stroke currently all stable - Time Time Spent with patient: 15-24 minutes Medications reviewed and adjusted accordingly: Yes Within: within 24 hours - Inpatient Certification Medical Necessity: Need Close Monitoring Due to Risk of Patient Decompensation Post Hospital Care: D/C Cooler Servicer Documentation - Plan Summary Plan Summary: Discussed with the patient and the regarding the all the patient's test results and current conditions adjust the blood pressure medications and potential discharge with the outpatients physical therapy and Occupational Therapy the patient's remained tomorrow in the morning
[2018-05-27] MEDS: ACETAMINOPHEN 325 MG TABLET PO PRN (15:14)
[2018-05-27] MEDS: ATORVASTATIN CALCIUM 80 MG TABLET PO SCH (21:22)
[2018-05-28 03:41] VITALS: BP 145/89
--- NOTE | 2018-05-28 08:40 | PDOC DISCHARGE SUMMARY ---
General - Admit/Disc Date/PCP Admission Date/Primary Care Provider: 05/27/18 17:01 JENNI MAX, Discharge Date: 05/28/18 - Discharge Diagnosis (1) Acute ischemic stroke MCA territory Is this a current diagnosis for this admission?: Yes Summary: Currently all stable's continues to aspirin Plavix and statin Discuss about the diet controlled the blood pressure (2) Hyperlipidemia Is this a current diagnosis for this admission?: Yes Summary: Continues to high-dose Lipitor (3) Hypertension Is this a current diagnosis for this admission?: Yes Summary: Continues to current medications check the blood pressure at home and low- sodium diet following a one-week and diarrhea just the medication if the blood pressure is still not at goal (4) Tobacco dependence Is this a current diagnosis for this admission?: Yes Summary: Patients want to cold turkey do not want any medications or any patch (5) Headache Is this a current diagnosis for this admission?: Yes Summary: Currently all getting better - Additional Information Resuscitation Status: Full Code Discharge Diet: Cardiac Discharge Activity: Activity As Tolerated Prescriptions: Aspirin [Ecotrin 81 mg EC Tablet] 81 mg PO DAILY #60 tabec Atorvastatin Calcium [Lipitor 80 mg Tablet] 80 mg PO QHS #60 tablet Clopidogrel Bisulfate [Plavix 75 mg Tablet] 75 mg PO DAILY #30 tablet Home Medications: Amlodipine Besylate/Benazepril [Amlodipine-Benazepril 10-20 mg] 1 cap PO DAILY # 30 05/28/18 Aspirin [Ecotrin 81 mg EC Tablet] 81 mg PO DAILY #60 tabec 05/28/18 Atorvastatin Calcium [Lipitor 80 mg Tablet] 80 mg PO QHS #60 tablet 05/28/18 Clopidogrel Bisulfate [Plavix 75 mg Tablet] 75 mg PO DAILY #30 tablet 05/28/18 History of Present Illness History of Present Illness: MEGHA AGARWAL is a 47 year old male This is a 47-year-old male admitting in the hospital for the acute right thalamus strokes with a left-sided facial numbness patient's treated with the stroke protocol Hospital Course Hospital Course: This is a 47-year-old male admitting in the hospital for the acute right thalamic strokes with a left-sided weakness in the left facial tingling and numbness patients treated with the stroke protocol Patient's MRI of the head was suggested a right thalamus strokes and a CT angiogram was negative for any blockage for the brain and carotid ultrasound and echocardiogram was all stable Patient underwent for physical therapy Patient's blood pressure is stable Patient's otherwise doing well and very extensive discussions with the patient about lifestyle change smoking counseling and also diet controlled This with the patient and the about all the test reports and the plan Patient scheduled outpatient physical therapy occupational therapy Discussed with the patient about any warning sign of increasing any headaches any tingling any numbness any double vision is to come to the emergency department Patient and understand very well Patient's ambulatory with the walker without any problems Is all neuro exam is normal on discharge Physical Exam Vital Signs: Temp Pulse Resp BP Pulse Ox 97.8 F 52 L 18 145/89 H 99 05/28/18 08:23 05/28/18 08:23 05/28/18 08:23 05/28/18 03:34 05/28/18 08:23 Intake & Output 05/27/18 05/28/18 05/29/18 06:59 06:59 06:59 Intake Total 1419 Balance 1419 Weight 113.4 kg General appearance: PRESENT: no acute distress, well-developed, well-nourished Head exam: PRESENT: atraumatic, normocephalic Eye exam: PRESENT: conjunctiva pink, EOMI, PERRLA. ABSENT: scleral icterus Ear exam: PRESENT: normal external ear exam Mouth exam: PRESENT: moist, tongue midline Neck exam: PRESENT: full ROM. ABSENT: carotid bruit, JVD, lymphadenopathy, thyromegaly Respiratory exam: PRESENT: clear to auscultation bree Cardiovascular exam: PRESENT: RRR. ABSENT: diastolic murmur, rubs, systolic murmur Pulses: PRESENT: normal dorsalis pedis pul, +2 pedal pulses bilateral Vascular exam: PRESENT: normal capillary refill GI/Abdominal exam: PRESENT: normal bowel sounds, soft. ABSENT: distended, guarding, mass, organolmegaly, rebound, tenderness Rectal exam: PRESENT: deferred Extremities exam: ABSENT: pedal edema Musculoskeletal exam: PRESENT: ambulatory Neurological exam: PRESENT: alert, awake, oriented to person, oriented to place , oriented to time, oriented to situation, CN II-XII grossly intact. ABSENT: motor sensory deficit Psychiatric exam: PRESENT: appropriate affect, normal mood. ABSENT: homicidal ideation, suicidal ideation Skin exam: PRESENT: dry, intact, warm. ABSENT: cyanosis, rash Results Impressions: Chest X-Ray 05/23/18 00:00 IMPRESSION: NO ACUTE RADIOGRAPHIC FINDING IN THE CHEST. Head CTA 05/23/18 11:08 IMPRESSION: NO CTA EVIDENCE OF STENOSIS OR ANEURYSM OF THE [place]. Carotid Doppler Study 05/25/18 00:00 IMPRESSION: NO HEMODYNAMICALLY SIGNIFICANT STENOSIS. Head MRI 05/25/18 00:00 IMPRESSION: Acute infarction right internal capsule without mass effect or hemorrhage. EVIDENCE OF ACUTE STROKE: YES. RIGHT MCA Head CT 05/26/18 00:00 IMPRESSION: Subacute infarction in the right thalamus. No new findings. EVIDENCE OF ACUTE STROKE: NO. Qualifiers - * PATIENT BEING DISCHARGED WITH ANY OF THE FOLLOWING DIAGNOSIS: Stroke VTE patient discharged on overlapping Therapy?: Yes Stroke Pt being discharged on Anti-thrombolytic therapy?: Yes Stroke Pt being discharged on Anti-coagulation therapy?: No Reason(s) for not prescribing Anti-coagulation therapy:: Not indicated Stroke Pt being discharged on Statins?: Yes Plan Time Spent: Greater than 30 Minutes - Patient was discharged home with the stable conditions follow outpatient in 1 week
[2018-05-28] MEDS: ENOXAPARIN SODIUM INJ 40 MG/0.4 ML DISP.SYRIN SUBCUT SCH (09:33)
[2018-05-28] MEDS: OXYCODONE HCL SR 10 MG TABLET PO SCH (09:33)
[2018-05-28] MEDS: LISINOPRIL 10 MG TABLET PO SCH (09:35)
[2018-05-28] MEDS: AMLODIPINE BESYLATE 5 MG TABLET PO SCH (09:35)
[2018-05-28] MEDS: CLOPIDOGREL BISULFATE 75 MG TABLET PO SCH (09:35)
[2018-05-28] MEDS: ASPIRIN 81 MG TABLET, ENT COATED PO SCH (09:35)
== END 2018-05-28 10:21 | disposition home or self-care (01) | DRG 66 ==
LOC: ER 10:02 → EH 13:14 → 3S 15:49 → OBSVTOIN 05-27 17:01
PROVIDERS: ADMIT Internal Medicine; ATTEND Family Medicine
DX: I63.511 Cerebral infarction due to unspecified occlusion or stenosis of right middle cerebral artery (principal); E78.5 Hyperlipidemia, unspecified; I10 Essential (primary) hypertension; R73.03 Prediabetes; R20.0 Anesthesia of skin; F17.290 Nicotine dependence, other tobacco product, uncomplicated; R29.810 Facial weakness; R53.1 Weakness; Z79.82 Long term (current) use of aspirin; Z86.73 Personal history of transient ischemic attack (TIA), and cerebral infarction without residual deficits; Z83.3 Family history of diabetes mellitus
CPT/HCPCS: 36415; 70450; 70496; 70551; 71045; 80053; 80061; 80307; 81001; 82550; 82553; 83036; 84484; 85025; 93005; 93010; 93306; 93880; 99285; G0378; J1650